=== PATIENT | male | born 1970 | race Caucasian/White ===

== ENCOUNTER 2016-09-14 08:07 | Emergency (ER) | payer OTHER ==
[~2016-09-14] VITALS: Ht 187.9 cm; Wt 93.0 kg
[~2016-09-14 08:07] MED LIST: 'PARAFON FORTE500 M1 PO; AUGMENTIN 875 M1 TAB PO; BACTRIM DS 8001 TA1 PO; CELEBREX200 MG PO; CYCLOBENZAPRINE10 MG PO; CYCLOBENZAPRINE5 M3 PO; DOXY-D100 MG PO; HYDROCODONE BIT1 T11 PO; MEDROL DOSEPAK4 MG PO; MOTRIN800 MG PO; Motrin,Rufen800 MG PO; NAPROSYN500 MG PO; NKHM; NORCO 10-325 T1 EACH PO; Orphenadrine C100 MG PO; PERCOCET 325 MG1 TA7 PO; SKELAXIN800 MG PO; TRAMADOL HCL50 MG PO; VICODIN 5/500 505 MG PO; VICODIN 500 MG-1 TAB PO; [UNRECOGNIZED DRUG - OTHER]
[2016-09-14 08:22] VITALS: BP 133/99
[2016-09-14] MEDS ORDERED: AMOXICILLIN500 M2 PO (08:43)
[2016-09-14] MEDS ORDERED: IBU800 MG PO (08:43)
[2016-11-12] MEDS ORDERED: NABUMETONE750 M1 PO (08:06)
[2016-11-12] MEDS ORDERED: IBU800 M1 PO (08:07)
[2016-11-12] MEDS ORDERED: ULTRAM50 MG PO (09:53)
[2016-11-12] MEDS ORDERED: TOBREX OPHTH S2.5 ML OPH (09:53)
== END 2016-09-14 09:05 | disposition home or self-care (01) ==
LOC: ED 08:07
DX: K02.9 Dental caries, unspecified (principal); M16.11 Unilateral primary osteoarthritis, right hip

== ENCOUNTER → 2016-09-28 | Outpatient (CLI) | payer OTHER ==
[~2016-09-28] MED LIST changes: +AMOXICILLIN500 M2 PO; +IBU800 M1 PO; +IBU800 MG PO; +NABUMETONE750 M1 PO; +TOBREX OPHTH S2.5 ML OPH; +ULTRAM50 MG PO
[2016-09-28 07:34] LABS: BASO # 0.1 10*3/uL (0.0-0.1); BASO % 1.2 % (0.0-1.0); EOS # 0.4 10*3/uL (0.0-0.4); EOS % 6.7 % (1.0-4.0); HEMATOCRIT 44.5 % (42.0-52.0); HEMOGLOBIN 15.2 g/dl (14.0-18.0); LYMPH # 1.8 10*3/uL (1.3-4.4); LYMPH % 29.1 % (27.0-41.0); MEAN CELL VOLUME 86.7 fl (80.0-94.0); MEAN CORPUSCULAR HGB 29.6 pg (27.0-31.0); MEAN CORPUSCULAR HGB CONC 34.2 g/dl (33.0-37.0); MEAN PLATELET VOLUME 8.8 fl (9.6-12.3); MONO # 0.3 10*3/uL (0.1-1.0); MONO % 5.2 % (3.0-9.0); NEUT # 3.5 10*3/uL (2.3-7.9); NEUT % 57.6 % (47.0-73.0); PLATELET COUNT AUTOMATED 332 10*3/uL (130-400); RED BLOOD COUNT 5.13 10*6/uL (4.50-5.90); RED CELL DISTRI WIDTH 12.2 % (0-14.5)
[2016-09-28 08:02] LABS: ALBUMIN 3.9 gm/dl (3.1-4.5); ALKALINE PHOSPHATASE 56 U/L (45-117); BILIRUBIN, TOTAL 0.4 mg/dl (0.2-1.0); BUN 12 mg/dl (7-24); C-REACTIVE PROTEIN 0.29 MG/DL (0-0.3); CARBON DIOXIDE 25 mmol/L (21-32); CHLORIDE 105 mmol/L (98-107); EST GLOM FILT AFRICAN AMERICAN > 60 ml/min; GLUCOSE 90 mg/dL (65-99); POTASSIUM 3.9 mmol/L (3.5-5.1); SGOT/AST 17 IU/L (3-35); SGPT/ALT 27 U/L (12-78); SODIUM 141 mmol/L (136-145); TOTAL PROTEIN 6.7 gm/dL (6.4-8.2)
[2016-09-29 09:11] LABS: RHEUMATOID ARTHRITIS FACTOR <10.0 IU/mL (0.0-13.9)
== END | disposition home or self-care (01) ==
LOC: LAB 07:02
PROVIDERS: Occupational Therapist
DX: M53.3 Sacrococcygeal disorders, not elsewhere classified (principal); G89.29 Other chronic pain; M54.5 Low back pain; M25.50 Pain in unspecified joint; Z96.641 Presence of right artificial hip joint

== ENCOUNTER → 2017-02-18 | Outpatient (CLI) | payer OTHER | END | disposition home or self-care (01) | LOC: MRI 02-15 10:00 | DX: M47.896 Other spondylosis, lumbar region (principal); M48.06 Spinal stenosis, lumbar region; M51.26 Other intervertebral disc displacement, lumbar region ==

== ENCOUNTER 2017-03-24 11:51 | Emergency (ER) | payer OTHER ==
[~2017-03-24] VITALS: Wt 90.3 kg
[2017-03-24 11:59] VITALS: BP 142/94
[2017-03-24] MEDS ORDERED: MELOXICAM15 MG PO (11:59)
[2017-03-24] MEDS ORDERED: DEPAKENE250 M1 PO (12:00)
[2017-03-24] MEDS ORDERED: CYCLOBENZAPRINE10 MG PO (12:00)
[2017-03-24] MEDS ORDERED: NEURONTIN400 MG PO (12:01)
[2017-03-24] MEDS ORDERED: HYDROCODONE BIT1 T11 PO (14:51)
[2017-03-24] MEDS ORDERED: MEDROL DOSEPAK4 MG PO (14:51)
== END 2017-03-24 14:48 | disposition home or self-care (01) ==
LOC: ED 11:51
DX: S39.012A Strain of muscle, fascia and tendon of lower back, initial encounter (principal); Z79.899 Other long term (current) drug therapy; X58.XXXA Exposure to other specified factors, initial encounter; Y93.89 Activity, other specified; Y92.34 Swimming pool (public) as the place of occurrence of the external cause; Y99.8 Other external cause status

== ENCOUNTER 2017-05-30 15:49 | Emergency (ER) | payer OTHER ==
[~2017-05-30] VITALS: Ht 187.9 cm; Wt 90.7 kg
[~2017-05-30 15:49] MED LIST changes: +DEPAKENE250 M1 PO; +MELOXICAM15 MG PO; +NEURONTIN400 MG PO
[2017-05-30 16:13] VITALS: BP 145/70
== END 2017-05-30 17:07 | disposition home or self-care (01) ==
LOC: ED 15:49
DX: R09.89 Other specified symptoms and signs involving the circulatory and respiratory systems (principal); F17.200 Nicotine dependence, unspecified, uncomplicated; M19.90 Unspecified osteoarthritis, unspecified site; Z98.890 Other specified postprocedural states; Z90.49 Acquired absence of other specified parts of digestive tract; Z79.899 Other long term (current) drug therapy

== ENCOUNTER → 2017-06-06 | Outpatient (CLI) | payer OTHER | END | disposition home or self-care (01) | LOC: RAD 13:04 | DX: M25.532 Pain in left wrist (principal) ==

== ENCOUNTER → 2017-06-14 | Outpatient (CLI) | payer OTHER | END | disposition home or self-care (01) | LOC: MRI 14:28 | DX: M51.26 Other intervertebral disc displacement, lumbar region (principal); M54.16 Radiculopathy, lumbar region ==

== ENCOUNTER → 2019-11-02 | Outpatient (CLI) | payer SELFPAY ==
[2019-11-02 09:42] LABS: BASO # 0.1 10*3/uL (0.0-0.1); EOS # 0.5 10*3/uL (0.0-0.4); EOS % 6.9 % (1.0-4.0); HEMATOCRIT 46.7 % (42.0-52.0); HEMOGLOBIN 15.2 g/dl (14.0-18.0); LYMPH # 1.6 10*3/uL (1.3-4.4); LYMPH % 23.5 % (27.0-41.0); MEAN CELL VOLUME 88.6 fl (80.0-94.0); MEAN CORPUSCULAR HGB 28.8 pg (27.0-31.0); MEAN CORPUSCULAR HGB CONC 32.5 g/dl (33.0-37.0); MONO # 0.4 10*3/uL (0.1-1.0); MONO % 5.5 % (3.0-9.0); NEUT # 4.2 10*3/uL (2.3-7.9); NEUT % 62.7 % (47.0-73.0); PLATELET COUNT AUTOMATED 334 10*3/uL (130-400); RED BLOOD COUNT 5.27 10*6/uL (4.50-5.90); RED CELL DISTRI WIDTH 12.6 % (0-14.5); WHITE BLOOD COUNT 6.8 10*3/uL (4.8-10.8)
[2019-11-02 09:54] LABS: ALBUMIN 4.1 gm/dl (3.1-4.5); ALKALINE PHOSPHATASE 64 U/L (45-117); BUN 20 mg/dl (7-24); CHLORIDE 107 mmol/L (98-107); CHOLESTEROL 190 mg/dL (<200); CREATININE 0.89 mg/dL (0.70-1.30); FREE T4 0.88 ng/dl (0.76-1.46); HDL CHOLESTEROL 49 mg/dl (40-60); LDL CHOLESTEROL 121 mg/dL (9-159); SGOT/AST 22 IU/L (3-35); SGPT/ALT 34 U/L (12-78); SODIUM 140 mmol/L (136-145); TOTAL PROTEIN 7.2 gm/dL (6.4-8.2); TRIGLYCERIDES 100 mg/dl (<150); VLDL CHOLESTEROL 20 mg/dL (6-40)
[2019-11-02 11:02] LABS: VITAMIN D, 25-HYDROXY 31.7 ng/mL (30-100)
== END | disposition home or self-care (01) ==
LOC: LAB 08:35
PROVIDERS: Internal Medicine
DX: Z00.00 Encounter for general adult medical examination without abnormal findings (principal); Z13.1 Encounter for screening for diabetes mellitus; Z13.220 Encounter for screening for lipoid disorders; Z13.21 Encounter for screening for nutritional disorder; E55.9 Vitamin D deficiency, unspecified

== ENCOUNTER → 2019-12-04 | Outpatient (CLI) | payer SELFPAY ==
[2019-12-04 08:38] LABS: URIC ACID 4.7 mg/dL (3.5-7.2)
[2019-12-05 04:03] LABS: RHEUMATOID ARTHRITIS FACTOR <10.0 IU/mL (0.0-13.9)
[2019-12-05 22:02] LABS: CCP ANTIBODIES IGG/IGA 7 units (0-19)
== END | disposition home or self-care (01) ==
LOC: LAB 07:21
PROVIDERS: Internal Medicine
DX: M06.9 Rheumatoid arthritis, unspecified (principal); M79.642 Pain in left hand

== ENCOUNTER → 2020-08-08 | Outpatient (CLI) | payer OTHER | END | disposition home or self-care (01) | LOC: COVID19 10:46 | PROVIDERS: ATTEND Internal Medicine | DX: Z20.828 Contact with and (suspected) exposure to other viral communicable diseases (principal) ==

== ENCOUNTER 2020-10-17 15:53 | Emergency (ER) | payer OTHER ==
[~2020-10-17] VITALS: Ht 187.9 cm; Wt 95.3 kg
[2020-10-17 16:02] VITALS: BP 143/77
[2020-10-17] MEDS ORDERED: MEDROL DOSEPAK4 MG PO (18:41)
[2020-10-17] MEDS ORDERED: HYDROCODONE-AC1 EAC1 PO (18:41)
[2020-11-24] MEDS ORDERED: ZOLOFT25 MG PO (11:08)
[2020-11-24] MEDS ORDERED: DEPAKOTE500 MG PO (11:08)
[2020-11-27] MEDS ORDERED: HYDROCODONE-AC1 EAC1 PO (11:32)
== END 2020-10-17 19:15 | disposition home or self-care (01) ==
LOC: ED 15:53
DX: S79.911A Unspecified injury of right hip, initial encounter (principal); Z79.899 Other long term (current) drug therapy; X58.XXXA Exposure to other specified factors, initial encounter; Y93.89 Activity, other specified; Y92.89 Other specified places as the place of occurrence of the external cause; Y99.8 Other external cause status

== ENCOUNTER → 2020-11-17 | Outpatient (CLI) | payer OTHER ==
[~2020-11-17] MED LIST changes: +DEPAKOTE500 MG PO; +HYDROCODONE-AC1 EAC1 PO; +ZOLOFT25 MG PO
== END | disposition home or self-care (01) ==
LOC: ORTHO 00:22
PROVIDERS: ATTEND Orthopaedic Surgery
DX: M19.022 Primary osteoarthritis, left elbow (principal); R60.0 Localized edema; M89.8X4 Other specified disorders of bone, hand

== ENCOUNTER → 2020-11-24 | Outpatient (CLI) | payer OTHER | LOC: COVID19 09:38 | PROVIDERS: ATTEND Orthopaedic Surgery | DX: Z01.812 Encounter for preprocedural laboratory examination (principal); Z20.822 Contact with and (suspected) exposure to COVID-19 ==

== ENCOUNTER → 2020-11-27 | Day surgery (SDC) | payer OTHER ==
[2020-11-24 11:06] VITALS: BP 142/94
[2020-11-24 12:28] LABS: BUN 19 mg/dl (7-24); CHLORIDE 108 mmol/L (98-107); CREATININE 0.83 mg/dL (0.70-1.30); POTASSIUM 4.2 mmol/L (3.5-5.1); SODIUM 142 mmol/L (136-145)
[2020-11-27] VITALS (7 sets, daily range): BP systolic 128–142; BP diastolic 67–88
[~2020-11-27] VITALS: Ht 187.9 cm; Wt 95.3 kg
[2020-11-29 14:07] LABS: ACID FAST SPEC PROCESSING Tissue Grinding (.)
== END ==
LOC: SDC 11-24 11:00
PROVIDERS: ATTEND Orthopaedic Surgery
DX: G56.23 Lesion of ulnar nerve, bilateral upper limbs (principal); M70.22 Olecranon bursitis, left elbow; F41.9 Anxiety disorder, unspecified; F32.9 Major depressive disorder, single episode, unspecified; Z96.643 Presence of artificial hip joint, bilateral; Z79.899 Other long term (current) drug therapy

== ENCOUNTER 2021-02-03 14:57 | Emergency (ER) | payer OTHER ==
[~2021-02-03] VITALS: Wt 95.3 kg
[2021-02-03 15:06] VITALS: BP 148/86
[2021-02-04] MEDS ORDERED: PREDNISONE20 M1 PO (14:22)
== END 2021-02-03 19:44 | disposition home or self-care (01) ==
LOC: ED 14:57
DX: M25.551 Pain in right hip (principal); Z79.899 Other long term (current) drug therapy; Z98.890 Other specified postprocedural states; Z90.49 Acquired absence of other specified parts of digestive tract

== ENCOUNTER → 2021-02-27 | Outpatient (CLI) | payer OTHER ==
[~2021-02-27] MED LIST changes: +PREDNISONE20 M1 PO
== END | disposition home or self-care (01) ==
LOC: MRI 12:55
PROVIDERS: ATTEND Nurse Practitioner Primary Care
DX: M48.061 Spinal stenosis, lumbar region without neurogenic claudication (principal); M47.816 Spondylosis without myelopathy or radiculopathy, lumbar region; M54.41 Lumbago with sciatica, right side; M54.42 Lumbago with sciatica, left side; G89.29 Other chronic pain

== ENCOUNTER → 2022-01-14 | Outpatient (CLI) | payer OTHER ==
[~2022-01-14] MED LIST changes: +IBU600 M1 PO; +KLONOPIN0.5 MG PO; +TYLENOL EXTRA500 MG PO
[2022-01-14 11:31] LABS: BILIRUBIN Negative (Negative); BLOOD Negative (Negative); CLARITY Clear (Clear); COLOR Yellow (Yellow); GLUCOSE Negative (Negative); KETONE Trace (Negative); LEUKO ESTERASE Trace (Negative); NITRITE Negative (Negative); PH 6.5 (4.5-8.0)
[2022-01-14 11:32] LABS: BASO % 0.6 % (0.0-1.0); HEMATOCRIT 44.4 % (42.0-52.0); LYMPH # 0.8 10*3/uL (1.3-4.4); LYMPH % 15.4 % (27.0-41.0); MEAN CORPUSCULAR HGB 28.6 pg (27.0-31.0); MEAN CORPUSCULAR HGB CONC 34.5 g/dl (33.0-37.0); MEAN PLATELET VOLUME 8.5 fl (9.6-12.3); MONO # 0.4 10*3/uL (0.1-1.0); MONO % 6.6 % (3.0-9.0); NEUT # 4.1 10*3/uL (2.3-7.9); NEUT % 77.2 % (47.0-73.0); PLATELET COUNT AUTOMATED 253 10*3/uL (130-400); RED BLOOD COUNT 5.35 10*6/uL (4.50-5.90); RED CELL DISTRI WIDTH 12.1 % (0-14.5); WHITE BLOOD COUNT 5.3 10*3/uL (4.8-10.8)
[2022-01-14 11:39] LABS: BACTERIA 2+; EPITHELIAL CELLS 0-2; HYALINE CAST 0-2
[2022-01-14 11:51] LABS: BUN 14 mg/dl (7-24); CHLORIDE 104 mmol/L (98-107); CREATININE 1.06 mg/dL (0.70-1.30); POTASSIUM 3.6 mmol/L (3.5-5.1); SGOT/AST 42 IU/L (3-35); SGPT/ALT 37 U/L (12-78); SODIUM 135 mmol/L (136-145); TOTAL PROTEIN 7.4 gm/dL (6.4-8.2)
[2022-01-14 11:59] LABS: ALKALINE PHOSPHATASE 57 U/L (45-117)
== END | disposition home or self-care (01) ==
LOC: LAB 11:13
PROVIDERS: ATTEND Family Medicine
DX: S09.90XA Unspecified injury of head, initial encounter (principal); R25.1 Tremor, unspecified; G44.211 Episodic tension-type headache, intractable; X58.XXXA Exposure to other specified factors, initial encounter; Y93.89 Activity, other specified; Y92.89 Other specified places as the place of occurrence of the external cause; Y99.8 Other external cause status

== ENCOUNTER 2022-01-16 09:39 | Emergency (ER) | payer OTHER ==
[~2022-01-16] VITALS: Ht 187.9 cm; Wt 95.3 kg
[~2022-01-16 09:39] MED LIST changes: -IBU600 M1 PO; -KLONOPIN0.5 MG PO; -TYLENOL EXTRA500 MG PO
[2022-01-16 09:50] VITALS: BP 137/88
[2022-01-16] MEDS ORDERED: DEPAKOTE500 MG PO (12:37)
[2022-01-16] MEDS ORDERED: TYLENOL EXTRA500 MG PO (12:37)
[2022-01-16] MEDS ORDERED: KLONOPIN0.5 MG PO (12:37)
[2022-01-16] MEDS ORDERED: IBU600 M1 PO (12:37)
== END 2022-01-16 12:57 | disposition home or self-care (01) ==
LOC: ED 09:39
DX: F07.81 Postconcussional syndrome (principal); R25.1 Tremor, unspecified; M19.90 Unspecified osteoarthritis, unspecified site; Z79.899 Other long term (current) drug therapy; Z98.890 Other specified postprocedural states; Z90.49 Acquired absence of other specified parts of digestive tract

== ENCOUNTER → 2022-02-02 | Outpatient (CLI) | payer OTHER ==
[~2022-02-02] MED LIST changes: +IBU600 M1 PO; +KLONOPIN0.5 MG PO; +TYLENOL EXTRA500 MG PO
== END | disposition home or self-care (01) ==
LOC: RAD 09:28
PROVIDERS: ATTEND Orthopaedic Surgery
DX: M25.552 Pain in left hip (principal); Z96.643 Presence of artificial hip joint, bilateral

== ENCOUNTER → 2022-02-25 | Outpatient (CLI) | payer OTHER | END | disposition home or self-care (01) | LOC: NM 09:51 | PROVIDERS: ATTEND Orthopaedic Surgery | DX: M25.852 Other specified joint disorders, left hip (principal); M25.851 Other specified joint disorders, right hip ==

== ENCOUNTER → 2022-04-22 | Outpatient (CLI) | payer OTHER ==
[2022-04-22 14:18] LABS: BASO % 0.4 % (0.0-1.0); HEMATOCRIT 41.6 % (42.0-52.0); LYMPH # 1.4 10*3/uL (1.3-4.4); LYMPH % 16.4 % (27.0-41.0); MEAN CELL VOLUME 83.4 fl (80.0-94.0); MEAN CORPUSCULAR HGB 29.3 pg (27.0-31.0); MEAN CORPUSCULAR HGB CONC 35.1 g/dl (33.0-37.0); MEAN PLATELET VOLUME 8.7 fl (9.6-12.3); MONO # 0.3 10*3/uL (0.1-1.0); MONO % 3.8 % (3.0-9.0); NEUT # 6.8 10*3/uL (2.3-7.9); NEUT % 79.2 % (47.0-73.0); PLATELET COUNT AUTOMATED 333 10*3/uL (130-400); RED BLOOD COUNT 4.99 10*6/uL (4.50-5.90); RED CELL DISTRI WIDTH 13.2 % (0-14.5); WHITE BLOOD COUNT 8.5 10*3/uL (4.8-10.8)
== END | disposition home or self-care (01) ==
LOC: LAB 13:51
PROVIDERS: ATTEND Orthopaedic Surgery
DX: T84.84XA Pain due to internal orthopedic prosthetic devices, implants and grafts, initial encounter (principal); X58.XXXA Exposure to other specified factors, initial encounter

== ENCOUNTER 2022-09-17 13:45 | Emergency (ER) | payer OTHER ==
[~2022-09-17] VITALS: Ht 187.9 cm; Wt 97.5 kg
[2022-09-17 13:56] VITALS: BP 138/94
[2022-09-17] MEDS ORDERED: CYMBALTA60 MG PO (14:14)
[2022-09-17 14:40] LABS: BASO # 0.1 10*3/uL (0.0-0.1); BASO % 0.7 % (0.0-1.0); EOS # 0.2 10*3/uL (0.0-0.4); EOS % 2.7 % (1.0-4.0); HEMATOCRIT 42.8 % (42.0-52.0); LYMPH # 1.6 10*3/uL (1.3-4.4); LYMPH % 21.5 % (27.0-41.0); MEAN CELL VOLUME 84.1 fl (80.0-94.0); MEAN CORPUSCULAR HGB 29.1 pg (27.0-31.0); MEAN CORPUSCULAR HGB CONC 34.6 g/dl (33.0-37.0); MEAN PLATELET VOLUME 8.8 fl (9.6-12.3); MONO # 0.3 10*3/uL (0.1-1.0); MONO % 4.5 % (3.0-9.0); NEUT # 5.2 10*3/uL (2.3-7.9); NEUT % 70.3 % (47.0-73.0); PLATELET COUNT AUTOMATED 307 10*3/uL (130-400); RED BLOOD COUNT 5.09 10*6/uL (4.50-5.90); RED CELL DISTRI WIDTH 12.3 % (0-14.5); WHITE BLOOD COUNT 7.3 10*3/uL (4.8-10.8)
[2022-09-17 14:56] LABS: ALKALINE PHOSPHATASE 57 U/L (46-116); BUN 12 mg/dl (9-23); CHLORIDE 101 mmol/L (98-107); LIPASE 29 U/L (12-53); POTASSIUM 3.9 mmol/L (3.4-5.1); SGPT/ALT 21 U/L (10-49); TOTAL PROTEIN 6.6 gm/dL (6.0-8.0)
[2022-09-17 15:25] LABS: ACT PARTIAL THROMBO TIME 26.2 SECONDS (20.0-32.1)
[2022-09-17] MEDS ORDERED: ONDANSETRON4 MG SL (16:29)
[2022-09-17] MEDS ORDERED: MECLIZINE HCL25 M2 PO (16:29)
== END 2022-09-17 16:32 | disposition home or self-care (01) ==
LOC: ED 13:45
PROVIDERS: Emergency Medicine
DX: R42 Dizziness and giddiness (principal); Z98.890 Other specified postprocedural states; Z90.49 Acquired absence of other specified parts of digestive tract

== ENCOUNTER 2022-11-06 05:33 | Emergency (ER) | payer OTHER ==
[~2022-11-06] VITALS: Ht 187.9 cm; Wt 97.5 kg
[~2022-11-06 05:33] MED LIST changes: +CYMBALTA60 MG PO; +MECLIZINE HCL25 M2 PO; +ONDANSETRON4 MG SL
[2022-11-06 05:39] VITALS: BP 141/97
[2022-11-06] MEDS ORDERED: GENTACIDIN5 ML NAS (06:01)
[2022-11-06] MEDS ORDERED: Percocet 325 MG1 TAB PO (06:01)
== END 2022-11-06 06:07 | disposition home or self-care (01) ==
LOC: ED 05:33
DX: S05.02XA Injury of conjunctiva and corneal abrasion without foreign body, left eye, initial encounter (principal); Z90.49 Acquired absence of other specified parts of digestive tract; Z98.890 Other specified postprocedural states; F17.200 Nicotine dependence, unspecified, uncomplicated; X58.XXXA Exposure to other specified factors, initial encounter; Y93.89 Activity, other specified; Y92.89 Other specified places as the place of occurrence of the external cause; Y99.8 Other external cause status

== ENCOUNTER → 2022-11-19 | Outpatient (CLI) | payer OTHER ==
[~2022-11-19] MED LIST changes: +GENTACIDIN5 ML NAS; +Percocet 325 MG1 TAB PO
== END | disposition home or self-care (01) ==
LOC: ORTHO 00:17
PROVIDERS: ATTEND Orthopaedic Surgery
DX: M19.011 Primary osteoarthritis, right shoulder (principal)

== ENCOUNTER 2022-11-28 07:49 | Emergency (ER) | payer OTHER ==
[~2022-11-28] VITALS: Ht 187.9 cm; Wt 97.5 kg
[2022-11-28 08:08] VITALS: BP 127/96
[2022-11-28] MEDS ORDERED: PERCOCET 5-3251 EACH PO (09:22)
[2022-11-28] MEDS ORDERED: TOBRADEX 0.1%-0.5 ML OPH (09:22)
== END 2022-11-28 09:48 | disposition home or self-care (01) ==
LOC: ED 07:49
DX: S05.02XA Injury of conjunctiva and corneal abrasion without foreign body, left eye, initial encounter (principal); H10.9 Unspecified conjunctivitis; Z90.49 Acquired absence of other specified parts of digestive tract; Z98.890 Other specified postprocedural states; F17.200 Nicotine dependence, unspecified, uncomplicated; X58.XXXA Exposure to other specified factors, initial encounter; Y93.89 Activity, other specified; Y92.89 Other specified places as the place of occurrence of the external cause; Y99.8 Other external cause status

== ENCOUNTER 2023-01-06 08:36 | Emergency (ER) | payer OTHER ==
[~2023-01-06] VITALS: Ht 187.9 cm; Wt 97.5 kg
[~2023-01-06 08:36] MED LIST changes: +PERCOCET 5-3251 EACH PO; +TOBRADEX 0.1%-0.5 ML OPH
[2023-01-06 08:42] VITALS: BP 149/99
[2023-01-06] MEDS ORDERED: HYDROCODONE-AC1 EAC1 PO (09:33)
[2023-01-06] MEDS ORDERED: Motrin,Rufen800 MG PO (09:33)
== END 2023-01-06 09:50 | disposition home or self-care (01) ==
LOC: ED 08:36
DX: H20.9 Unspecified iridocyclitis (principal); Z98.890 Other specified postprocedural states; Z90.49 Acquired absence of other specified parts of digestive tract

== ENCOUNTER → 2023-01-10 | Outpatient (CLI) | payer OTHER | END | disposition home or self-care (01) | LOC: MRI 14:00 | PROVIDERS: ATTEND Orthopaedic Surgery | DX: M75.51 Bursitis of right shoulder (principal); M77.8 Other enthesopathies, not elsewhere classified; M75.41 Impingement syndrome of right shoulder ==

== ENCOUNTER → 2023-02-03 | Day surgery (SDC) | payer OTHER ==
[2023-02-01 14:04] VITALS: BP 134/100
[~2023-02-03] VITALS: Ht 187.9 cm; Wt 97.5 kg
[2023-02-03] VITALS (7 sets, daily range): BP systolic 126–153; BP diastolic 86–105
[2023-02-03 07:45] LABS: BUN 10 mg/dl (9-23); CHLORIDE 107 mmol/L (98-107); POTASSIUM 4.1 mmol/L (3.4-5.1)
== END ==
LOC: SDC 01-10 12:30
PROVIDERS: ATTEND Orthopaedic Surgery
DX: G56.21 Lesion of ulnar nerve, right upper limb (principal); M75.41 Impingement syndrome of right shoulder; M19.011 Primary osteoarthritis, right shoulder; M54.2 Cervicalgia; F17.200 Nicotine dependence, unspecified, uncomplicated; I10 Essential (primary) hypertension; Z90.49 Acquired absence of other specified parts of digestive tract; Z98.890 Other specified postprocedural states; Z79.899 Other long term (current) drug therapy

== ENCOUNTER 2023-07-24 12:39 | Emergency (ER) | payer OTHER ==
[~2023-07-24] VITALS: Ht 187.9 cm; Wt 95.3 kg
[2023-07-24 13:19] LABS: BASO # 0.1 10*3/uL (0.0-0.1); BASO % 0.8 % (0.0-1.0); EOS # 1.1 10*3/uL (0.0-0.4); EOS % 12.7 % (1.0-4.0); HEMATOCRIT 48.1 % (42.0-52.0); LYMPH # 2.1 10*3/uL (1.3-4.4); LYMPH % 25.5 % (27.0-41.0); MEAN CELL VOLUME 86.4 fl (80.0-94.0); MEAN CORPUSCULAR HGB 29.6 pg (27.0-31.0); MEAN CORPUSCULAR HGB CONC 34.3 g/dl (33.0-37.0); MEAN PLATELET VOLUME 8.5 fl (9.6-12.3); MONO # 0.5 10*3/uL (0.1-1.0); MONO % 5.6 % (3.0-9.0); NEUT # 4.6 10*3/uL (2.3-7.9); NEUT % 55.2 % (47.0-73.0); PLATELET COUNT AUTOMATED 347 10*3/uL (130-400); RED BLOOD COUNT 5.57 10*6/uL (4.50-5.90); RED CELL DISTRI WIDTH 12.4 % (0-14.5); WHITE BLOOD COUNT 8.4 10*3/uL (4.8-10.8)
[2023-07-24] MEDS ORDERED: NORVASC5 MG PO (13:34)
[2023-07-24 13:40] LABS: ALKALINE PHOSPHATASE 67 U/L (46-116); BUN 17 mg/dl (9-23); CHLORIDE 108 mmol/L (98-107); POTASSIUM 3.8 mmol/L (3.4-5.1); SGPT/ALT 30 U/L (5-49); TOTAL PROTEIN 7.1 gm/dL (6.0-8.0)
[2023-07-24 13:59] VITALS: BP 132/94
== END 2023-07-24 14:01 | disposition home or self-care (01) ==
LOC: ED 12:39
PROVIDERS: Emergency Medicine
DX: I16.0 Hypertensive urgency (principal); I10 Essential (primary) hypertension; F31.9 Bipolar disorder, unspecified; F41.9 Anxiety disorder, unspecified; Z90.49 Acquired absence of other specified parts of digestive tract; Z98.890 Other specified postprocedural states

== ENCOUNTER 2023-09-26 10:23 | Emergency (ER) | payer OTHER ==
[~2023-09-26] VITALS: Ht 187.9 cm; Wt 97.5 kg
[~2023-09-26 10:23] MED LIST changes: +NORVASC5 MG PO
[2023-09-26 11:03] LABS: BASO # 0.1 10*3/uL (0.0-0.1); BASO % 1.1 % (0.0-1.0); EOS # 0.4 10*3/uL (0.0-0.4); EOS % 5.9 % (1.0-4.0); HEMATOCRIT 49.3 % (42.0-52.0); LYMPH # 1.8 10*3/uL (1.3-4.4); LYMPH % 27.7 % (27.0-41.0); MEAN CELL VOLUME 85.1 fl (80.0-94.0); MEAN CORPUSCULAR HGB CONC 34.1 g/dl (33.0-37.0); MEAN PLATELET VOLUME 8.8 fl (9.6-12.3); MONO # 0.4 10*3/uL (0.1-1.0); MONO % 5.8 % (3.0-9.0); NEUT # 3.9 10*3/uL (2.3-7.9); NEUT % 59.3 % (47.0-73.0); PLATELET COUNT AUTOMATED 341 10*3/uL (130-400); RED BLOOD COUNT 5.79 10*6/uL (4.50-5.90); RED CELL DISTRI WIDTH 12.1 % (0-14.5); WHITE BLOOD COUNT 6.6 10*3/uL (4.8-10.8)
[2023-09-26 11:13] LABS: ACT PARTIAL THROMBO TIME 27.6 SECONDS (20.0-32.1)
[2023-09-26 11:24] LABS: ALKALINE PHOSPHATASE 67 U/L (46-116); BUN 10 mg/dl (9-23); CHLORIDE 109 mmol/L (98-107); LIPASE 33 U/L (12-53); SGPT/ALT 23 U/L (5-49); TOTAL PROTEIN 7.1 gm/dL (6.0-8.0)
[2023-09-26 11:57] VITALS: BP 131/88
== END 2023-09-26 12:01 | disposition home or self-care (01) ==
LOC: ED 10:23
PROVIDERS: Emergency Medicine
DX: I10 Essential (primary) hypertension (principal); R10.2 Pelvic and perineal pain; F31.9 Bipolar disorder, unspecified; F41.9 Anxiety disorder, unspecified; Z98.890 Other specified postprocedural states; Z90.49 Acquired absence of other specified parts of digestive tract

== ENCOUNTER 2024-06-26 08:04 | Emergency (ER) | payer OTHER ==
[~2024-06-26] VITALS: Ht 187.9 cm; Wt 97.5 kg
[2024-06-26] MEDS ORDERED: CYMBALTA30 MG PO (08:17)
[2024-06-26] MEDS ORDERED: Meclizine Hydrochloride 25 MG TAB PO ONE (08:30)
[2024-06-26 08:41] LABS: BASO # 0.1 10*3/uL (0.0-0.1); BASO % 0.9 % (0.0-1.0); EOS # 0.2 10*3/uL (0.0-0.4); EOS % 2.5 % (1.0-4.0); LYMPH # 1.2 10*3/uL (1.3-4.4); LYMPH % 17.7 % (27.0-41.0); MEAN CELL VOLUME 88.3 fl (80.0-94.0); MEAN CORPUSCULAR HGB 30.3 pg (27.0-31.0); MEAN CORPUSCULAR HGB CONC 34.3 g/dl (33.0-37.0); MEAN PLATELET VOLUME 8.6 fl (9.6-12.3); MONO # 0.3 10*3/uL (0.1-1.0); MONO % 5.2 % (3.0-9.0); NEUT # 4.8 10*3/uL (2.3-7.9); NEUT % 73.4 % (47.0-73.0); PLATELET COUNT AUTOMATED 324 10*3/uL (130-400); RED BLOOD COUNT 5.32 10*6/uL (4.50-5.90); RED CELL DISTRI WIDTH 12.8 % (0-14.5); WHITE BLOOD COUNT 6.5 10*3/uL (4.8-10.8)
[2024-06-26 09:09] LABS: BUN 9 mg/dl (9-23); CHLORIDE 105 mmol/L (98-107); LDH 219 U/L (120-246); POTASSIUM 4.2 mmol/L (3.4-5.1)
[2024-06-26] MEDS ORDERED: ANTIVERT25 M2 PO (09:34)
[2024-06-26 10:05] VITALS: BP 142/94
== END 2024-06-26 10:05 | disposition home or self-care (01) ==
LOC: ED 08:04
PROVIDERS: Internal Medicine
DX: H81.10 Benign paroxysmal vertigo, unspecified ear (principal); R11.2 Nausea with vomiting, unspecified; I10 Essential (primary) hypertension; F41.9 Anxiety disorder, unspecified; F31.9 Bipolar disorder, unspecified; Z90.49 Acquired absence of other specified parts of digestive tract; Z98.890 Other specified postprocedural states

== ENCOUNTER → 2024-07-11 | Outpatient (CLI) | payer OTHER ==
[~2024-07-11] MED LIST changes: +ANTIVERT25 M2 PO; +CYMBALTA30 MG PO
== END | disposition home or self-care (01) ==
LOC: MRI 03:37
PROVIDERS: ATTEND Orthopaedic Surgery Sports Medicine
DX: S46.812A Strain of other muscles, fascia and tendons at shoulder and upper arm level, left arm, initial encounter (principal); M75.22 Bicipital tendinitis, left shoulder; M19.012 Primary osteoarthritis, left shoulder; M75.42 Impingement syndrome of left shoulder; X58.XXXA Exposure to other specified factors, initial encounter; Y93.89 Activity, other specified; Y92.89 Other specified places as the place of occurrence of the external cause; Y99.8 Other external cause status

== ENCOUNTER → 2025-02-12 | Outpatient (CLI) | payer OTHER | END | disposition home or self-care (01) | LOC: RAD 11:04 | PROVIDERS: ATTEND Family Medicine | DX: M50.323 Other cervical disc degeneration at C6-C7 level (principal); M50.321 Other cervical disc degeneration at C4-C5 level; M48.02 Spinal stenosis, cervical region ==

== ENCOUNTER → 2025-07-12 | Outpatient (CLI) | payer OTHER | END | disposition home or self-care (01) | LOC: MRI 01:53 | PROVIDERS: ATTEND Family Medicine | DX: M47.22 Other spondylosis with radiculopathy, cervical region (principal); M48.03 Spinal stenosis, cervicothoracic region ==

== ENCOUNTER 2025-08-19 15:02 | Emergency (ER) | payer OTHER ==
[~2025-08-19] VITALS: Ht 187.9 cm; Wt 97.5 kg
[2025-08-19 16:00] VITALS: BP 139/94
== END 2025-08-19 16:04 | disposition home or self-care (01) ==
LOC: ED 15:02
DX: I10 Essential (primary) hypertension (principal); Z98.890 Other specified postprocedural states; Z90.49 Acquired absence of other specified parts of digestive tract